=== PATIENT | female | born 1965 | race Caucasian/White ===

== ENCOUNTER 2019-12-30 23:23 | Emergency (ER) | payer MEDICAID ==
[~2019-12-30] VITALS: Ht 162.6 cm; Wt 50.9 kg
[2019-12-30 23:29] VITALS: BP 121/49
[2019-12-31] MEDS ORDERED: normal saline 1000ML IV soln IVB ONE
[2019-12-31 00:19] LABS: BASOPHILS # (AUTO) 0.1 X10'3 (0-0.2); BASOPHILS % (AUTO) 0.8 % (0-1); EOSINOPHILS # (AUTO) 0.2 X10'3 (0-0.9); EOSINOPHILS % (AUTO) 1.6 % (0-6); HEMATOCRIT 39.2 % (35.0-45.0); HEMOGLOBIN 13.1 g/dl (12.0-16.0); LYMPHOCYTES # (AUTO) 3.1 X10'3 (1.1-4.8); MEAN CORPUSCULAR HEMOGLOBIN 30.1 PG (27.0-31.0); MEAN CORPUSCULAR HGB CONC 33.5 g/dL (33.0-36.5); MEAN CORPUSCULAR VOLUME 89.6 FL (78-98); MEAN PLATELET VOLUME 7.4 FL (7.4-10.4); MONOCYTES # (AUTO) 0.9 X10'3 (0-0.9); MONOCYTES % (AUTO) 8.6 % (2-12); NEUTROPHILS # (AUTO) 6.5 X10'3 (1.8-7.7); PLATELET COUNT 316 X10'3 (140-440); RED BLOOD COUNT 4.37 X10'6 (4.20-5.60); RED CELL DISTRIBUTION WIDTH 14.1 % (11.5-14.5); WHITE BLOOD COUNT 10.8 X10'3 (4.5-11.0)
[2019-12-31 00:35] LABS: ALANINE AMINOTRANSFERASE 17 U/L (12-78); ALBUMIN/GLOBULIN RATIO 1.2 (1.1-1.5); ALKALINE PHOSPHATASE 69 IU/L (46-116); ANION GAP 7 (8-16); ASPARTATE AMINO TRANSFERASE 22 U/L (10-37); BILIRUBIN,TOTAL 0.3 MG/DL (0.1-1.0); BLOOD UREA NITROGEN 22 MG/DL (7-18); CALCIUM 9.5 MG/DL (8.5-10.1); CHLORIDE 101 MMOL/L (99-107); CREATININE 1.05 MG/DL (0.40-0.90); GLUCOSE 92 MG/DL (70-104); POTASSIUM 3.6 MMOL/L (3.5-5.1); SODIUM 138 MMOL/L (135-145); TOTAL CARBON DIOXIDE 29.7 MMOL/L (24-32); TOTAL PROTEIN 7.4 G/DL (6.4-8.2); eGFR 54 ML/MIN
[2019-12-31 00:41] LABS: CLARITY,URINE CLEAR (Clear); COLOR,URINE YELLOW (Yellow); GLUCOSE, URINE NEGATIVE (Neg); KETONES,URINE NEGATIVE (Neg); LEUKOCYTE ESTERASE ,URINE NEGATIVE (Neg); NITRITES, URINE NEGATIVE (Neg); OCCULT BLOOD,URINE TRACE-INTACT (Neg); PH,URINE 5.5 (4.8-8.0); PROTEIN,URINE NEGATIVE (Neg); UROBILINOGEN,URINE 0.2 E.U/dL (0.2-1.0)
[2019-12-31] MEDS ORDERED: triamcinolone acetonide 0.5% cream 15gm TP SCH (00:45)
[2019-12-31 00:46] LABS: UA COLLECTION TYPE VOIDED
[2019-12-31 00:48] LABS: BACTERIA,URINE NONE SEEN /HPF (Neg); RBC,URINE NONE SEEN /HPF (0-2); SQUAMOUS EPITHELIAL CELL,UR NONE SEEN /LPF (FEW); TRANSITIONAL EPI CELLS,URINE FEW /HPF; WBC,URINE NONE SEEN /HPF (0-4)
--- NOTE | 2019-12-31 00:52 | NUR ---
WAITING FOR PHARMACY TO FILL NEW ORDER OF CREAM
== END 2019-12-31 01:21 | disposition home or self-care (01) ==
LOC: ER 23:24
DX: L25.9 Unspecified contact dermatitis, unspecified cause (principal); R53.83 Other fatigue; E86.0 Dehydration; Z59.0 Homelessness
CPT/HCPCS: 36415; 80053; 81001; 85025; 96360; 99283; J7030

== ENCOUNTER 2020-01-07 09:00 | Emergency (ER) | payer MEDICAID ==
[~2020-01-07] VITALS: Ht 162.6 cm; Wt 52.0 kg
[2020-01-07 09:05] VITALS: BP 116/74
== END 2020-01-07 09:44 | disposition home or self-care (01) ==
LOC: ER 09:01
DX: F15.10 Other stimulant abuse, uncomplicated (principal); F10.10 Alcohol abuse, uncomplicated; Z59.0 Homelessness
CPT/HCPCS: 99281

== ENCOUNTER 2020-01-11 12:14 | Emergency (ER) | payer MEDICAID ==
[~2020-01-11] VITALS: Ht 162.6 cm; Wt 56.8 kg
[2020-01-11 12:15] VITALS: BP 112/69
[2020-01-11] MEDS ORDERED: DICL100G15 TOP (13:07)
[2020-01-11] MEDS ORDERED: IBUP-1984 PO (13:07)
== END 2020-01-11 13:23 | disposition home or self-care (01) ==
LOC: ER 12:14
DX: G89.29 Other chronic pain (principal); F15.10 Other stimulant abuse, uncomplicated; M54.5 Low back pain; M25.511 Pain in right shoulder; M25.512 Pain in left shoulder; M25.561 Pain in right knee; M25.562 Pain in left knee; F17.200 Nicotine dependence, unspecified, uncomplicated; F10.10 Alcohol abuse, uncomplicated; Z59.0 Homelessness; Z79.899 Other long term (current) drug therapy
CPT/HCPCS: 99283

== ENCOUNTER 2021-03-09 18:17 | Emergency (ER) | payer MEDICAID ==
[~2021-03-09] VITALS: Ht 162.6 cm; Wt 45.5 kg
[~2021-03-09 18:17] MED LIST: DICL100G15 TOP
[2021-03-09 19:05] LABS: BASOPHILS # (AUTO) 0.1 X10'3 (0-0.2); BASOPHILS % (AUTO) 0.5 % (0-1); EOSINOPHILS # (AUTO) 0.1 X10'3 (0-0.9); EOSINOPHILS % (AUTO) 1.1 % (0-6); HEMATOCRIT 42.3 % (35.0-45.0); HEMOGLOBIN 14.1 g/dl (12.0-16.0); LYMPHOCYTES # (AUTO) 2.1 X10'3 (1.1-4.8); LYMPHOCYTES % (AUTO) 19.7 % (21-51); MEAN CORPUSCULAR HGB CONC 33.2 g/dL (33.0-36.5); MEAN CORPUSCULAR VOLUME 90.3 FL (78-98); MEAN PLATELET VOLUME 7.4 FL (7.4-10.4); MONOCYTES # (AUTO) 0.4 X10'3 (0-0.9); MONOCYTES % (AUTO) 4.1 % (2-12); NEUTROPHILS % (AUTO) 74.6 % (42-75); PLATELET COUNT 459 X10'3 (140-440); RED BLOOD COUNT 4.69 X10'6 (4.20-5.60); WHITE BLOOD COUNT 10.8 X10'3 (4.5-11.0)
[2021-03-09 19:20] LABS: ALANINE AMINOTRANSFERASE 15 U/L (12-78); ALBUMIN 3.6 G/DL (3.4-5.0); ALKALINE PHOSPHATASE 73 IU/L (46-116); ANION GAP 7 (8-16); ASPARTATE AMINO TRANSFERASE 15 U/L (10-37); BILIRUBIN,TOTAL 0.3 MG/DL (0.1-1.0); BLOOD UREA NITROGEN 19 MG/DL (7-18); BUN/CREATININE RATIO 20.9 (6.6-38.0); CALCIUM 8.5 MG/DL (8.5-10.1); CHLORIDE 103 MMOL/L (99-107); CREATININE 0.91 MG/DL (0.40-0.90); GLUCOSE 123 MG/DL (70-104); POTASSIUM 3.6 MMOL/L (3.5-5.1); SODIUM 137 MMOL/L (135-145); TOTAL CARBON DIOXIDE 27.1 MMOL/L (24-32); TOTAL PROTEIN 7.1 G/DL (6.4-8.2); eGFR 64 ML/MIN
[2021-03-09 19:21] LABS: CLARITY,URINE SLIGHTLY CLOUDY (Clear); COLOR,URINE YELLOW (Yellow); GLUCOSE, URINE NEGATIVE (Neg); KETONES,URINE NEGATIVE (Neg); LEUKOCYTE ESTERASE ,URINE MODERATE (Neg); NITRITES, URINE NEGATIVE (Neg); OCCULT BLOOD,URINE TRACE-INTACT (Neg); PROTEIN,URINE NEGATIVE (Neg); UROBILINOGEN,URINE 0.2 E.U/dL (0.2-1.0)
[2021-03-09 19:26] LABS: UA COLLECTION TYPE CLN CATCH MIDSTREAM
[2021-03-09 19:32] LABS: BACTERIA,URINE 2+ /HPF (Neg); MUCUS STRANDS FEW /LPF (Neg); SQUAMOUS EPITHELIAL CELL,UR FEW /LPF (FEW); URINE AMPHETAMINE SCREEN POSITIVE (Neg); URINE BARBITUATE SCREEN NEGATIVE (Neg); URINE BENZODIAZEPINES SCREEN NEGATIVE (Neg); URINE CANNABINOID SCREEN NEGATIVE (Neg); URINE COCAINE SCREEN NEGATIVE (Neg); URINE METHADONE SCREEN NEGATIVE (Neg); URINE OPIATE SCREEN NEGATIVE (Neg); URINE PHENCYCLIDINE SCREEN NEGATIVE (Neg); WBC,URINE TNTC /HPF (0-4)
[2021-03-09] MEDS ORDERED: CefTRIAXone 250MG inj IM ONE (19:40)
[2021-03-09] MEDS ORDERED: CefTRIAXone 250MG IM Kit w/LIDOcaine IM ONE (19:45)
[2021-03-09] MEDS ORDERED: normal saline 1000ml 1,000 ML IV ONE ×2 (20:20)
[2021-03-09] MEDS ORDERED: NO HOME MEDS (21:08)
--- NOTE | 2021-03-09 23:16 | NUR ---
Patient in ED overflow bed 22. Patient changed into green scrubs, provided with pitcher of water, yogurt and cranberry juice. IV to right forearm patent. Denies any needs or discomfort or distress at this time.
[2021-03-10 01:53] VITALS: BP 107/69
--- NOTE | 2021-03-10 16:11 | NUR ---
[facility] accepted pt. Pt to be discharged from ER OF and taken to [facility].
[2021-03-13] MEDS ORDERED: HYDR-3686 PO (14:44)
== END 2021-03-10 16:53 ==
LOC: ER 18:17
DX: R45.851 Suicidal ideations (principal); F32.9 Major depressive disorder, single episode, unspecified; F15.10 Other stimulant abuse, uncomplicated; Z59.0 Homelessness; Z20.822 Contact with and (suspected) exposure to COVID-19
CPT/HCPCS: 36415; 80053; 80305; 81001; 84443; 85025; 87088; 87635; 96365; 99285; C9803; J0696; J7030

== ENCOUNTER 2021-03-19 12:36 | Emergency (ER) | payer MEDICAID ==
[~2021-03-19] VITALS: Ht 162.6 cm; Wt 49.3 kg
[~2021-03-19 12:36] MED LIST changes: -DICL100G15 TOP; +HYDR-3686 PO; +NO HOME MEDS
[2021-03-19 12:47] VITALS: BP 91/51
== END 2021-03-19 16:56 | disposition left against medical advice (07) ==
LOC: ER 12:37
DX: S01.91XA Laceration without foreign body of unspecified part of head, initial encounter (principal); Z53.21 Procedure and treatment not carried out due to patient leaving prior to being seen by health care provider; X58.XXXA Exposure to other specified factors, initial encounter; Y93.89 Activity, other specified; Y92.89 Other specified places as the place of occurrence of the external cause; Y99.8 Other external cause status

== ENCOUNTER 2021-03-30 17:01 | Emergency (ER) | payer MEDICAID ==
[~2021-03-30] VITALS: Ht 165.1 cm; Wt 56.8 kg
[2021-03-30 18:25] LABS: BASOPHILS % (AUTO) 0.4 % (0-1); EOSINOPHILS # (AUTO) 0.2 X10'3 (0-0.9); HEMATOCRIT 35.7 % (35.0-45.0); HEMOGLOBIN 11.8 g/dl (12.0-16.0); LYMPHOCYTES % (AUTO) 30.4 % (21-51); MEAN CORPUSCULAR HEMOGLOBIN 30.2 PG (27.0-31.0); MEAN CORPUSCULAR HGB CONC 33.2 g/dL (33.0-36.5); MEAN CORPUSCULAR VOLUME 90.9 FL (78-98); MEAN PLATELET VOLUME 7.6 FL (7.4-10.4); MONOCYTES # (AUTO) 0.5 X10'3 (0-0.9); MONOCYTES % (AUTO) 7.9 % (2-12); NEUTROPHILS # (AUTO) 3.9 X10'3 (1.8-7.7); NEUTROPHILS % (AUTO) 58.3 % (42-75); PLATELET COUNT 313 X10'3 (140-440); RED BLOOD COUNT 3.92 X10'6 (4.20-5.60); RED CELL DISTRIBUTION WIDTH 14.9 % (11.5-14.5); WHITE BLOOD COUNT 6.6 X10'3 (4.5-11.0)
[2021-03-30 18:36] LABS: URINE AMPHETAMINE SCREEN POSITIVE (Neg); URINE BARBITUATE SCREEN NEGATIVE (Neg); URINE BENZODIAZEPINES SCREEN NEGATIVE (Neg); URINE CANNABINOID SCREEN POSITIVE (Neg); URINE COCAINE SCREEN NEGATIVE (Neg); URINE METHADONE SCREEN NEGATIVE (Neg); URINE OPIATE SCREEN NEGATIVE (Neg); URINE PHENCYCLIDINE SCREEN NEGATIVE (Neg)
[2021-03-30 18:36] LABS: ALANINE AMINOTRANSFERASE 39 U/L (12-78); ALBUMIN 3.2 G/DL (3.4-5.0); ALBUMIN/GLOBULIN RATIO 0.9 (1.1-1.5); ALKALINE PHOSPHATASE 59 IU/L (46-116); ANION GAP 6 (8-16); ASPARTATE AMINO TRANSFERASE 27 U/L (10-37); BILIRUBIN,TOTAL 0.4 MG/DL (0.1-1.0); BLOOD UREA NITROGEN 10 MG/DL (7-18); BUN/CREATININE RATIO 13.9 (6.6-38.0); CALCIUM 8.3 MG/DL (8.5-10.1); CHLORIDE 105 MMOL/L (99-107); CREATININE 0.72 MG/DL (0.40-0.90); GLUCOSE 70 MG/DL (70-104); POTASSIUM 3.7 MMOL/L (3.5-5.1); SODIUM 140 MMOL/L (135-145); TOTAL CARBON DIOXIDE 28.7 MMOL/L (24-32); TOTAL PROTEIN 6.6 G/DL (6.4-8.2); eGFR 84 ML/MIN
[2021-03-30 18:50] LABS: ETHANOL < 0.010 GM/DL (0.0-0.010)
--- NOTE | 2021-03-30 19:12 | NUR ---
Assumed patient care from EDWIN Montejo.
[2021-03-30] MEDS ORDERED: hydrOXYzine 10 MG tablet PO PRN (19:45)
--- NOTE | 2021-03-30 20:20 | NUR ---
Patient is sleeping quietly on her right side. In view from the nurses station.
--- NOTE | 2021-03-30 23:01 | NUR ---
Patient sleeping quietly on her left side. No distress.
--- NOTE | 2021-03-31 00:21 | NUR ---
Patient is sleeping quietly on her left side. In view from the nurses station.
--- NOTE | 2021-03-31 02:04 | NUR ---
Patient is supine, bed in low fowlers position.
--- NOTE | 2021-03-31 05:09 | NUR ---
Patient is sleeping on her right side. No distress. In view from nurses station.
--- NOTE | 2021-03-31 06:00 | NUR ---
Patient is sleeping quietly in a supine position.
--- NOTE | 2021-03-31 07:00 | NUR ---
Received care of patient at 0630. Pt is resting comfortable, lying on her right side. Respirations even and unlabored. In view of nurses station.
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
--- NOTE | 2021-03-31 11:01 | NUR ---
Pt sleeping in supine position, respirations even and unlabored.
--- NOTE | 2021-03-31 12:18 | NUR ---
Pt sleeping in supine position, respirations even and unlabored
--- NOTE | 2021-03-31 14:02 | NUR ---
Patient back to sleep from eating lunch. Pt ate 100% of meal. Pt continues to c/o of "I am just tired."
--- NOTE | 2021-03-31 19:30 | NUR ---
One to one with the patient to assess severity of mental health symptoms. The patient was rude, sarcastic and condensending during the assessment. She is angry that she was awakened for the evening assessment. She reports that she is feeling very fatigued and she described her mood as "pretty pissy" She denies any auditory or visual hallucinations. She continues to report suicidal thoughts and stated, "The second you let me out is the second I "
--- NOTE | 2021-03-31 20:56 | NUR ---
The patient up to the nursing station to demand food. HS snack given.
--- NOTE | 2021-03-31 22:54 | NUR ---
The patient appears to be sleeping
--- NOTE | 2021-04-01 01:05 | NUR ---
The patient appears to be sleeping
--- NOTE | 2021-04-01 04:09 | NUR ---
The patient appears to be sleeping
--- NOTE | 2021-04-01 06:00 | NUR ---
cherri Addendum: 04/01/21 at 0601 by SBOVA patient refused to have vital signs completed.
--- NOTE | 2021-04-01 06:32 | NUR ---
Received patient sleeping, respirations even and unlabored.
--- NOTE | 2021-04-01 06:32 | NUR ---
Received patient sleeping, respirations even and unlabored.
--- NOTE | 2021-04-01 06:40 | NUR ---
Note from 0113 was written by Inga Good.
--- NOTE | 2021-04-01 08:25 | NUR ---
Pt finshed her breakfast and is now back to sleep. Pt was a little irritated "leave me alone" when RN woke her up to eat. When she realized it was her breakfast her mood became pleasant. Pt continues to endorse suicidal thoughts "I've tried jumping off a bridge and it didnt' work, will try something new." Pt laughs. Denies A/VH. Pt if focused on sleep and food.
--- NOTE | 2021-04-01 11:35 | NUR ---
Pt continues to sleep, no distress noted. Pt was up to bathroom then returned to bed.
--- NOTE | 2021-04-01 13:30 | NUR ---
Pt sleeping in supine position. Respirations even and unlabored. Pt ate 100% of her lunch.
--- NOTE | 2021-04-01 16:03 | NUR ---
Pt up to the bathroom. Ambulates with a steady gait.
--- NOTE | 2021-04-01 17:41 | NUR ---
Pt refused her vitals. RN explained that vitals are part of her treatment plan. When asked if she was feeling better pt said "All I need is days and days to sleep." Pt denied suicidal thoughts, A/VH.
--- NOTE | 2021-04-02 06:20 | NUR ---
Received patient sleeping with covers pulled up to her neck. Visible respirations even and unlabored.
--- NOTE | 2021-04-02 09:00 | NUR ---
Patient is sleeping, no distress noted. Pt voices "I am so tired." Pt denies suicidal thoughts, A/VH. Pt's thought content is getting her needs met. Pt ate 100% of breakfast.
--- NOTE | 2021-04-02 11:20 | NUR ---
[facility] Pt is being resistive to answering questions and RN over heard swearing and being rude. RN heard pt say "there is nothing you can do for me."
[2021-04-02 13:18] VITALS: BP 111/78
--- NOTE | 2021-04-02 13:23 | NUR ---
DISCHARGE NOTE: Pt was dishcarged from unit at 1315. Pt was escorted out by security as pt became verbally aggressive cursing and yelling at staff. Pt left with all personal belonings and ate 100% of her lunch. Pt was given number to [facility] and is aware of resources there. Pt has denied SI/HI, A/VH.
== END 2021-04-02 13:23 | disposition home or self-care (01) ==
LOC: ER 17:01
DX: R45.851 Suicidal ideations (principal); Z20.822 Contact with and (suspected) exposure to COVID-19; F15.10 Other stimulant abuse, uncomplicated; F32.9 Major depressive disorder, single episode, unspecified; F17.200 Nicotine dependence, unspecified, uncomplicated; Z56.0 Unemployment, unspecified; Z59.0 Homelessness; Z72.89 Other problems related to lifestyle; Z79.899 Other long term (current) drug therapy
CPT/HCPCS: 36415; 80053; 80305; 80320; 84443; 85025; 87635; 99285; C9803

== ENCOUNTER 2021-04-05 07:22 | Emergency (ER) | payer MEDICAID ==
[~2021-04-05] VITALS: Ht 162.6 cm; Wt 50.0 kg
[2021-04-05 07:36] VITALS: BP 95/62
[2021-04-05] MEDS ORDERED: DOXY100C76 PO (07:57)
--- NOTE | 2021-04-05 09:39 | NUR ---
PATIENT DISCHARGE, GIVEN PRESCRIPTION AND SOCKS. PT REFUSING TO LEAVE. ESCORTED OUT BY SECURITY
== END 2021-04-05 09:39 | disposition home or self-care (01) ==
LOC: ER 07:22
DX: L08.89 Other specified local infections of the skin and subcutaneous tissue (principal); L98.8 Other specified disorders of the skin and subcutaneous tissue; Z59.0 Homelessness
CPT/HCPCS: 99283

== ENCOUNTER 2021-05-01 09:52 | Emergency (ER) | payer MEDICAID ==
[~2021-05-01] VITALS: Ht 162.6 cm; Wt 45.5 kg
[2021-05-01 10:32] LABS: BASOPHILS % (AUTO) 0.4 % (0-1); EOSINOPHILS % (AUTO) 4.3 % (0-6); HEMATOCRIT 43.5 % (35.0-45.0); HEMOGLOBIN 14.4 g/dl (12.0-16.0); LYMPHOCYTES % (AUTO) 19.7 % (21-51); MEAN CORPUSCULAR HEMOGLOBIN 29.5 PG (27.0-31.0); MEAN CORPUSCULAR VOLUME 89.5 FL (78-98); MEAN PLATELET VOLUME 6.9 FL (7.4-10.4); MONOCYTES % (AUTO) 5.9 % (2-12); NEUTROPHILS % (AUTO) 69.7 % (42-75); PLATELET COUNT 462 X10'3 (140-440); RED BLOOD COUNT 4.87 X10'6 (4.20-5.60); RED CELL DISTRIBUTION WIDTH 14.7 % (11.5-14.5)
[2021-05-01 10:33] LABS: EOSINOPHILS # (AUTO) 0.4 X10'3 (0-0.9); MONOCYTES # (AUTO) 0.6 X10'3 (0-0.9)
[2021-05-01 10:45] LABS: ALANINE AMINOTRANSFERASE 21 U/L (12-78); ALBUMIN 3.4 G/DL (3.4-5.0); ALBUMIN/GLOBULIN RATIO 0.8 (1.1-1.5); ALKALINE PHOSPHATASE 82 IU/L (46-116); ANION GAP 6 (8-16); ASPARTATE AMINO TRANSFERASE 17 U/L (10-37); BILIRUBIN,TOTAL 0.2 MG/DL (0.1-1.0); BLOOD UREA NITROGEN 16 MG/DL (7-18); CALCIUM 8.8 MG/DL (8.5-10.1); CHLORIDE 105 MMOL/L (99-107); GLUCOSE 101 MG/DL (70-104); POTASSIUM 4.6 MMOL/L (3.5-5.1); SODIUM 141 MMOL/L (135-145); TOTAL CARBON DIOXIDE 30.5 MMOL/L (24-32); TOTAL PROTEIN 7.8 G/DL (6.4-8.2); eGFR 74 ML/MIN
[2021-05-01 10:54] LABS: ETHANOL < 0.010 GM/DL (0.0-0.010)
[2021-05-01 13:14] LABS: CLARITY,URINE CLEAR (Clear); COLOR,URINE YELLOW (Yellow); GLUCOSE, URINE NEGATIVE (Neg); KETONES,URINE NEGATIVE (Neg); LEUKOCYTE ESTERASE ,URINE LARGE (Neg); NITRITES, URINE NEGATIVE (Neg); OCCULT BLOOD,URINE TRACE-INTACT (Neg); PROTEIN,URINE NEGATIVE (Neg); UROBILINOGEN,URINE 0.2 E.U/dL (0.2-1.0)
[2021-05-01 13:16] LABS: UA COLLECTION TYPE CLN CATCH MIDSTREAM
[2021-05-01 13:25] LABS: URINE AMPHETAMINE SCREEN NEGATIVE (Neg); URINE BARBITUATE SCREEN NEGATIVE (Neg); URINE BENZODIAZEPINES SCREEN NEGATIVE (Neg); URINE CANNABINOID SCREEN NEGATIVE (Neg); URINE COCAINE SCREEN NEGATIVE (Neg); URINE METHADONE SCREEN NEGATIVE (Neg); URINE OPIATE SCREEN NEGATIVE (Neg); URINE PHENCYCLIDINE SCREEN NEGATIVE (Neg)
[2021-05-01 13:44] LABS: MUCUS STRANDS FEW /LPF (Neg); SQUAMOUS EPITHELIAL CELL,UR FEW /LPF (FEW)
[2021-05-01 13:45] LABS: BACTERIA,URINE 1+ /HPF (Neg); RENAL CELLS, URINE FEW /HPF
[2021-05-01 13:47] LABS: RBC,URINE 0-2 /HPF (0-2)
[2021-05-01 13:48] LABS: WBC CLUMPS,URINE FEW /HPF (NEGATIVE)
[2021-05-01] MEDS ORDERED: cephalexin 250mg capsule PO SCH (14:15)
--- NOTE | 2021-05-01 19:00 | NUR ---
PT UP AND TO THE BATHROOM, DINNER TRAY DELIVERED, PT EATS 100%, WATER PITCHED IS REPLACED. SHE IS VERY PLEASANT AND DENIES ANY SI AT THIS TIME.
[2021-05-01 20:00] VITALS: BP 100/60
--- NOTE | 2021-05-01 20:30 | NUR ---
PT SLEEPING R. LATERAL.
--- NOTE | 2021-05-01 22:02 | NUR ---
PT MOVED TO BROWN BED, SLEEPING L. LATERAL, IN LINE OF SIGHT OF NURSES STATION.
--- NOTE | 2021-05-02 | NUR ---
PT UP AND AMBULATORY TO THE BATHROOM WITH STEADY GAIT, DENIES ANY NEEDS AT THIS TIME. BACK INTO BED AND PULLS BLANKETS OVER HER HEAD.
--- NOTE | 2021-05-02 02:00 | NUR ---
PT SLEEPING, RR EVEN, NON-LABORED, APPEARS TO BE IN NO DISTRESS, IN DIRECT LINE OF SIGHT OF NURSES STATION.
--- NOTE | 2021-05-02 04:00 | NUR ---
PT SLEEPING, RR EVEN, NON-LABORED, APPEARS TO BE IN NO DISTRESS, IN DIRECT LINE OF SIGHT OF NURSES STATION.
--- NOTE | 2021-05-02 05:00 | NUR ---
PT SLEEPING, RR EVEN, NON-LABORED, APPEARS TO BE IN NO DISTRESS, IN DIRECT LINE OF SIGHT OF NURSES STATION.
--- NOTE | 2021-05-02 06:26 | NUR ---
PATIENT RESTING QUIETLY, APPEARS TO BE SLEEPING, NO SIGNS OF DISTRESS
--- NOTE | 2021-05-02 07:47 | NUR ---
PACKET FAXED TO [facility]
--- NOTE | 2021-05-02 08:29 | NUR ---
PATIENT IS UP EATING BREAKFAST
== END 2021-05-02 11:19 | disposition home or self-care (01) ==
LOC: ER 09:52
DX: R45.851 Suicidal ideations (principal); F15.90 Other stimulant use, unspecified, uncomplicated; Z79.899 Other long term (current) drug therapy; Z56.0 Unemployment, unspecified; Z59.0 Homelessness; Z72.89 Other problems related to lifestyle
CPT/HCPCS: 36415; 80053; 80305; 80320; 81001; 84443; 85025; 99285

== ENCOUNTER 2021-08-27 22:52 | Emergency (ER) | payer MEDICAID | END 2021-08-27 23:44 | disposition left against medical advice (07) | LOC: ER 22:53 | DX: J00 Acute nasopharyngitis [common cold] (principal); Z53.21 Procedure and treatment not carried out due to patient leaving prior to being seen by health care provider ==

== ENCOUNTER 2021-10-17 10:17 | Emergency (ER) | payer MEDICAID ==
[~2021-10-17] VITALS: Ht 162.6 cm; Wt 50.0 kg
[2021-10-17 10:52] VITALS: BP 118/55
== END 2021-10-17 15:42 | disposition home or self-care (01) ==
LOC: ER 10:18
DX: S62.391A Other fracture of second metacarpal bone, left hand, initial encounter for closed fracture (principal); S62.393A Other fracture of third metacarpal bone, left hand, initial encounter for closed fracture; S60.222A Contusion of left hand, initial encounter; M79.642 Pain in left hand; F32.A Depression, unspecified; F17.200 Nicotine dependence, unspecified, uncomplicated; F15.90 Other stimulant use, unspecified, uncomplicated; Z72.89 Other problems related to lifestyle; Z59.00 Homelessness unspecified; Z56.0 Unemployment, unspecified; Z79.899 Other long term (current) drug therapy; W19.XXXA Unspecified fall, initial encounter; Y93.89 Activity, other specified; Y92.89 Other specified places as the place of occurrence of the external cause; Y99.8 Other external cause status
CPT/HCPCS: 29105; 70450; 73080; 73130; 99284

== ENCOUNTER 2021-12-30 19:49 | Emergency (ER) | payer MEDICAID ==
[~2021-12-30] VITALS: Ht 162.6 cm; Wt 59.1 kg
[2021-12-30 20:27] LABS: BASOPHILS % (AUTO) 0.5 % (0-1); EOSINOPHILS % (AUTO) 0.1 % (0-6); HEMATOCRIT 44.2 % (35.0-45.0); HEMOGLOBIN 15.1 g/dl (12.0-16.0); LYMPHOCYTES # (AUTO) 1.4 X10'3 (1.1-4.8); LYMPHOCYTES % (AUTO) 25.9 % (21-51); MEAN CORPUSCULAR HEMOGLOBIN 30.1 PG (27.0-31.0); MEAN CORPUSCULAR HGB CONC 34.3 g/dL (33.0-36.5); MEAN CORPUSCULAR VOLUME 87.9 FL (78-98); MEAN PLATELET VOLUME 7.4 FL (7.4-10.4); MONOCYTES # (AUTO) 0.5 X10'3 (0-0.9); MONOCYTES % (AUTO) 9.8 % (2-12); NEUTROPHILS # (AUTO) 3.3 X10'3 (1.8-7.7); NEUTROPHILS % (AUTO) 63.7 % (42-75); PLATELET COUNT 295 X10'3 (140-440); RED BLOOD COUNT 5.03 X10'6 (4.20-5.60); RED CELL DISTRIBUTION WIDTH 14.5 % (11.5-14.5); WHITE BLOOD COUNT 5.3 X10'3 (4.5-11.0)
[2021-12-30 20:52] VITALS: BP 95/75
[2021-12-30 20:57] LABS: ALANINE AMINOTRANSFERASE 26 U/L (12-78); ALBUMIN 3.9 G/DL (3.4-5.0); ALKALINE PHOSPHATASE 74 IU/L (46-116); ANION GAP 13 (8-16); ASPARTATE AMINO TRANSFERASE 28 U/L (10-37); BILIRUBIN,TOTAL 0.4 MG/DL (0.1-1.0); BLOOD UREA NITROGEN 15 MG/DL (7-18); BUN/CREATININE RATIO 12.5 (6.6-38.0); CALCIUM 8.6 MG/DL (8.5-10.1); CHLORIDE 95 MMOL/L (99-107); GLUCOSE 119 MG/DL (70-104); POTASSIUM 3.9 MMOL/L (3.5-5.1); SODIUM 131 MMOL/L (135-145); eGFR 46 ML/MIN
[2021-12-30] MEDS ORDERED: normal saline 1000ML IV soln IV ONE (21:00)
[2021-12-30 21:04] LABS: CLARITY,URINE SLIGHTLY CLOUDY (Clear); GLUCOSE, URINE NEGATIVE (Neg); KETONES,URINE 15 mg/dl (Neg); LEUKOCYTE ESTERASE ,URINE SMALL (Neg); NITRITES, URINE NEGATIVE (Neg); OCCULT BLOOD,URINE MODERATE (Neg); PROTEIN,URINE 30 mg/dl (Neg); UROBILINOGEN,URINE 0.2 E.U/dL (0.2-1.0)
[2021-12-30 21:06] LABS: UA COLLECTION TYPE URINAL
[2021-12-30 21:07] LABS: COLOR,URINE AMBER (Yellow)
[2021-12-30 21:12] LABS: BACTERIA,URINE 2+ /HPF (Neg); SQUAMOUS EPITHELIAL CELL,UR MODERATE /LPF (FEW)
[2021-12-30 21:13] LABS: MUCUS STRANDS MANY /LPF (Neg)
== END 2021-12-30 23:49 | disposition home or self-care (01) ==
LOC: ER 19:49
DX: J11.1 Influenza due to unidentified influenza virus with other respiratory manifestations (principal); Z20.822 Contact with and (suspected) exposure to COVID-19; F32.A Depression, unspecified; F15.10 Other stimulant abuse, uncomplicated; Z59.00 Homelessness unspecified; Z56.0 Unemployment, unspecified; Z79.899 Other long term (current) drug therapy
CPT/HCPCS: 36415; 71045; 80053; 81001; 83605; 84145; 85025; 87040; 87088; 87502; 87503; 87635; 99284; C9803; J7030

== ENCOUNTER 2023-03-06 14:38 | Emergency (ER) | payer MEDICAID ==
[~2023-03-06] VITALS: Ht 160 cm; Wt 56.8 kg
[2023-03-06 14:46] VITALS: PULSE 68; RESP 19; TEMP 98.3; O2SAT 97
[2023-03-06 15:34] LABS: BASOPHILS % (AUTO) 0.4 % (0-1); EOSINOPHILS # (AUTO) 0.3 X10'3 (0-0.9); EOSINOPHILS % (AUTO) 4.9 % (0-6); HEMATOCRIT 43.3 % (35.0-45.0); HEMOGLOBIN 14.5 g/dl (12.0-16.0); MEAN CORPUSCULAR HEMOGLOBIN 29.6 PG (27.0-31.0); MEAN CORPUSCULAR HGB CONC 33.6 g/dL (33.0-36.5); MEAN CORPUSCULAR VOLUME 88.3 FL (78-98); MEAN PLATELET VOLUME 7.4 FL (7.4-10.4); MONOCYTES # (AUTO) 0.5 X10'3 (0-0.9); MONOCYTES % (AUTO) 9.1 % (2-12); NEUTROPHILS % (AUTO) 51.6 % (42-75); PLATELET COUNT 368 X10'3 (140-440); RED CELL DISTRIBUTION WIDTH 14.5 % (11.5-14.5); WHITE BLOOD COUNT 5.8 X10'3 (4.5-11.0)
[2023-03-06 15:52] LABS: ALANINE AMINOTRANSFERASE 22 U/L (12-78); ALBUMIN 4.2 G/DL (3.4-5.0); ALBUMIN/GLOBULIN RATIO 1.1 (1.1-1.5); ALKALINE PHOSPHATASE 76 IU/L (46-116); ANION GAP 10 (8-16); ASPARTATE AMINO TRANSFERASE 26 U/L (10-37); BILIRUBIN,TOTAL 0.7 MG/DL (0.1-1.0); BLOOD UREA NITROGEN 38 MG/DL (7-18); BUN/CREATININE RATIO 28.1 (10.0-20.0); CALCIUM 9.5 MG/DL (8.5-10.1); CHLORIDE 99 MMOL/L (99-107); CREATININE 1.35 MG/DL (0.40-0.90); GLUCOSE 175 MG/DL (70-104); SODIUM 134 MMOL/L (135-145); TOTAL CARBON DIOXIDE 24.6 MMOL/L (24-32); TOTAL PROTEIN 8.2 G/DL (6.4-8.2); eGFR 40 ML/MIN
[2023-03-06 16:18] LABS: CLARITY,URINE CLOUDY (Clear); COLOR,URINE YELLOW (Yellow); GLUCOSE, URINE NEGATIVE (Neg); KETONES,URINE TRACE mg/dl (Neg); LEUKOCYTE ESTERASE ,URINE NEGATIVE (Neg); NITRITES, URINE NEGATIVE (Neg); OCCULT BLOOD,URINE TRACE-INTACT (Neg); PROTEIN,URINE TRACE mg/dl (Neg); UROBILINOGEN,URINE 0.2 E.U/dL (0.2-1.0)
[2023-03-06 16:25] LABS: UA COLLECTION TYPE CLN CATCH MIDSTREAM
[2023-03-06 16:27] LABS: MUCUS STRANDS MANY /LPF (Neg); SQUAMOUS EPITHELIAL CELL,UR MODERATE /LPF (FEW)
[2023-03-06 16:30] LABS: TRANSITIONAL EPI CELLS,URINE FEW /HPF; WBC,URINE 0-4 /HPF (0-4)
[2023-03-06 16:32] LABS: BACTERIA,URINE FEW /HPF (Neg)
[2023-03-06 16:33] LABS: AMORPHOUS URATES 1+
== END 2023-03-06 16:54 | disposition home or self-care (01) ==
LOC: ER 14:38
DX: R45.851 Suicidal ideations (principal); Z59.00 Homelessness unspecified; F32.A Depression, unspecified; F15.10 Other stimulant abuse, uncomplicated; Z56.0 Unemployment, unspecified; Z79.899 Other long term (current) drug therapy
CPT/HCPCS: 36415; 80053; 81001; 84443; 85025; 99283; 99285